=== PATIENT | female | born 1960 | race Caucasian/White ===

== ENCOUNTER → 2016-11-03 | Outpatient (CLI) | payer OTHER ==
--- NOTE | 2016-11-03 17:18 | Diagnostic Imaging Report ---
EXAMINATION: Bilateral digital screening mammogram with CAD. The current study was also evaluated with a Computer Aided Detection (CAD) system. INDICATION: Screening. No current complaints stated on the questionnaire. COMPARISON: 05/16/2006. FINDINGS: The breasts are composed of scattered fibroglandular densities. There is significant decrease in overall breast density when compared to 2006 exam, limiting the value of comparison. There is a focal asymmetry seen in the lateral aspect of the right breast persistent on tomographic evaluation. The left breast demonstrates no definite underlying lesion. IMPRESSION: Focal compression views and ultrasound evaluation for focal asymmetry along the lateral aspect of the right breast is recommended. ACR BI-RADS Category 0: Incomplete. (Needs additional imaging evaluation). Result letter will be mailed to the patient. Note: At least 10% of breast cancer is not imaged by mammography. Dictated by: Dictated on workstation # [id number]
== END ==
LOC: RAD 14:57
PROVIDERS: ATTEND Nurse Practitioner Family
DX: Z12.31 Encounter for screening mammogram for malignant neoplasm of breast (principal); N64.89 Other specified disorders of breast
CPT/HCPCS: 77067

== ENCOUNTER → 2016-12-05 | Outpatient (CLI) | payer OTHER ==
--- NOTE | 2016-12-05 20:24 | Diagnostic Imaging Report ---
Right breast diagnostic mammogram with tomography. COMPARISON: 05/16/2006. INDICATION: Focal asymmetry in the outer aspect of the right breast. The current study was also evaluated with a Computer Aided Detection (CAD) system. FINDINGS: Focal compression views and true lateral projection demonstrate persistent asymmetry with no confirmed underlying mass. IMPRESSION: Persistent indeterminate asymmetry along the outer aspect of right breast. Ultrasound evaluation pending. ACR BI-RADS Category 0: Incomplete. (Needs additional imaging evaluation). Result letter will be mailed to the patient. Note: At least 10% of breast cancer is not imaged by mammography. Dictated by: Dictated on workstation # [id number]
--- NOTE | 2016-12-05 20:32 | Diagnostic Imaging Report ---
EXAMINATION: Right breast ultrasound. INDICATION: Focal asymmetry in the outer aspect of the right breast. FINDINGS: The four quadrants and retroareolar region of the right breast is scanned with no underlying abnormality seen. IMPRESSION: Negative study. Six-month followup mammogram is recommended to ensure stability or resolution of the focal asymmetry, presumably related to summation artifact of parenchyma. ACR BI-RADS Category 3: Probably benign findings. Dictated by: Dictated on workstation # [id number]
== END ==
LOC: RAD 13:59
PROVIDERS: ATTEND Nurse Practitioner Family
DX: N64.89 Other specified disorders of breast (principal)
CPT/HCPCS: 76641

== ENCOUNTER 2018-01-31 14:10 | Emergency (ER) | payer SELFPAY ==
[~2018-01-31] VITALS: Ht 175.3 cm; Wt 84.4 kg
[2018-01-31 14:35] LABS: BASOPHILS % (AUTO) 0 % (0-10); EOSINOPHILS % (AUTO) 0 % (0-10); HEMATOCRIT 42 % (35-52); HEMOGLOBIN 14.8 G/DL (11.5-16.0); LYMPHOCYTES # (AUTO) 1.8 X 10^3 (1.0-4.0); LYMPHOCYTES % (AUTO) 16 % (12-44); MEAN CORPUSCULAR HEMOGLOBIN 33 PG (25-34); MEAN CORPUSCULAR HGB CONC 35 G/DL (32-36); MEAN CORPUSCULAR VOLUME 93 FL (80-99); MEAN PLATELET VOLUME 8.8 FL (7.4-10.4); MONOCYTES # (AUTO) 1.4 X 10^3 (0.0-1.0); MONOCYTES % (AUTO) 12 % (0-12); NEUTROPHILS # (AUTO) 8.1 X 10^3 (1.8-7.8); NEUTROPHILS % (AUTO) 72 % (42-75); PLATELET COUNT 335 10^3/uL (130-400); RED BLOOD COUNT 4.54 10^6/uL (4.35-5.85); RED CELL DISTRIBUTION WIDTH 14.6 % (10.0-14.5); WHITE BLOOD COUNT 11.3 10^3/uL (4.3-11.0)
--- NOTE | 2018-01-31 14:52 | Diagnostic Imaging Report ---
INDICATION: Shortness of breath COMPARISON: None. FINDINGS: Frontal and lateral views the chest demonstrate clear lungs bilaterally. The heart is minimally enlarged. There is no pneumothorax. Osseous structures are normal. IMPRESSION: Minimal cardiac enlargement without pulmonary edema or infiltrate. Dictated by: Dictated on workstation # [id number]
[2018-01-31 14:59] LABS: ALBUMIN 4.4 GM/DL (3.2-4.5); BILIRUBIN,TOTAL 0.8 MG/DL (0.1-1.0); CALCIUM 9.4 MG/DL (8.5-10.1); CREATININE SERUM 1.06 MG/DL (0.60-1.30); POTASSIUM 3.7 MMOL/L (3.6-5.0); TOTAL PROTEIN 7.2 GM/DL (6.4-8.2)
--- OUTSIDE RECORDS SUMMARY | 2018-01-31 15:14 | XMS REPORT ---
Author Author DAISY URIOSTEGUI [facility] Address [address] [place] [address] Care Team Providers Care Computator Name Role Phone DAISY URIOSTEGUI Unavailable PROBLEMS Type Condition ICD9-CM Code SNH81-PM Code Onset Dates Condition Status SNOMED Code Problem Mood disorder F39 Active 27258057 Problem Hypertension, unspecified type I10 Active 60003456 Problem Slow transit constipation K59.01 Active 80054648 Problem Lumbago with sciatica, left side M54.42 Active 071635610 Problem Other chronic pain G89.29 Active 40692523 Problem Abnormal mammogram of right breast R92.8 Active 961744416 Problem Disc degeneration, lumbar M51.36 Active 10692185 ALLERGIES Substance Reaction Event Type Date Status Penicillin V Potassium hives Drug Allergy Dec, Active ENCOUNTERS Encounter Location Date Diagnosis [facility] [address] [address] Dec, Cough R05 ; Viral gastroenteritis A08.4 and Hypertension, unspecified type I10 [facility] [id number] [place] [address] Dec, [facility] [address] [address] Aug, Slow transit constipation K59.01 and Abdominal pain, generalized R10.84 [facility] [address] [address] Nov, Abnormal mammogram of right breast R92.8 [facility] [address] [address] Nov, [facility] [address] [address] Nov, Mood disorder F39 [facility] [address] [address] 12 Oct, 2016 Routine gynecological examination Z01.419 and Breast cancer screening Z12.31 [facility] [address] [address] Sep, Mood disorder F39 ; Disc degeneration, lumbar M51.36 ; Lumbago with sciatica, left side M54.42 ; Other chronic pain G89.29 and Cyst of left breast N60.02 [facility] [id number] [place] [address] Sep, [facility] [id number] [place] [address] June, Hypertension 401.9 ; Sciatic nerve pain 724.3 and Degenerative joint disease 715.90 [facility] [id number] [place] [address] 280[address] May, [facility] [id number] [place] [address]- [address] May, [facility] [id number] [place] [id number]- [address] Apr, [facility] [address] [address] Apr, [facility] [id number] [place] [address]- [address] Apr, [facility] [address] [address] Apr, [facility] [id number] [place] [address]- [address] Jan, [facility] [id number] [address] Jan, [facility] [id number] [place] [address] 20[address] June, [facility] [address] [facility] [id number] [address] June, [facility] [id number] [address] June, [facility] [id number] [address] June, [facility] [address] [address] May, [facility] [id number] [address] May, [facility] [address], [place] [address] Apr, [facility] [address] [address] Mar, [facility] [id number] [address] Mar, IMMUNIZATIONS No Known Immunizations SOCIAL HISTORY Never Assessed REASON FOR VISIT elevated Blood Pressure; chest cold - TONIE Luis PLAN OF CARE Activity Details Follow Up if not improving with PCP or reg follow up Reason: VITAL SIGNS Height 69 in 2017-12-12 Weight 195.8 lbs 2017-12-12 Temperature 97.9 degrees Fahrenheit 2017-12-12 Heart Rate 76 bpm 2017-12-12 Respiratory Rate 18 2017-12-12 BMI 28.91 kg/m2 2017-12-12 Blood pressure systolic 142 mmHg 2017-12-12 Blood pressure diastolic 100 mmHg 2017-12-12 MEDICATIONS Medication Instructions Dosage Frequency Start Date End Date Duration Status Azithromycin 250 MG Orally Once a day 2 tablets on the first day, then 1 tablet daily for 4 days 24h Dec, Dec, 5 day(s) Active Tramadol HCl 50 mg Orally every 6 hrs 1 tablet as needed 6h 24 Sep, 2016 Active Naproxen 500 mg Orally every 12 hrs 1 tablet as needed 12h June, Active Lisinopril-Hydrochlorothiazide 20-25 MG Orally Once a day 1 tablet 24h June, 30 day(s) Active Zofran ODT 4 MG Orally every 4 hrs 1 tablet on the tongue and allow to dissolve as needed 4h Dec, 5 days Active Symbicort 80-4.5 MCG/ACT Inhalation Twice a day 2 puffs 12h 12 Apr, 2014 Active RESULTS Name Result Date Reference Range Xray : Chest 2 View (IN HOUSE) 2017-12-12 PROCEDURES Procedure Date Ordered Result Body Site X-RAY EXAM CHEST 2 VIEWS Dec 12, 2017 INSTRUCTIONS MEDICATIONS ADMINISTERED No Known Medications MEDICAL (GENERAL) HISTORY Type Description Date Medical History hypertension Medical History anxiety Medical History depression Surgical History tubal ligation Surgical History cyst removed left breast Hospitalization History Surgery(s)/Childbirth(s) only
--- OUTSIDE RECORDS SUMMARY | 2018-01-31 15:14 | XMS REPORT ---
Author Author JALIL TINEO Organization [facility] Address [address] [place] [address] Care Team Providers Care Presser And Blocker Knitted Goods Name Role Phone JALIL TINEO Unavailable PROBLEMS Type Condition ICD9-CM Code GCS02-IV Code Onset Dates Condition Status SNOMED Code Problem Slow transit constipation K59.01 Active 17146387 Problem Abnormal mammogram of right breast R92.8 Active 816434589 Problem Other chronic pain G89.29 Active 60471653 Problem Mood disorder F39 Active 42415651 Problem Disc degeneration, lumbar M51.36 Active 07626842 Problem Lumbago with sciatica, left side M54.42 Active 761905153 ALLERGIES Substance Reaction Event Type Date Status Penicillin V Potassium hives Drug Allergy Aug, Active ENCOUNTERS Encounter Location Date Diagnosis [place] [address] [address] Aug, Slow transit constipation K59.01 and Abdominal pain, generalized R10.84 [place] [id number] [place] [address] Nov, Abnormal mammogram of right breast R92.8 [place] [id number] [place] [address] Nov, [place] [id number] [place] [address] Nov, Mood disorder F39 [place] [address] [address] Oct, Routine gynecological examination Z01.419 and Breast cancer screening Z12.31 [place] [id number] [place] [address] Sep, Mood disorder F39 ; Disc degeneration, lumbar M51.36 ; Lumbago with sciatica, left side M54.42 ; Other chronic pain G89.29 and Cyst of left breast N60.02 [facility] [id number] [address] Sep, [facility] [id number] [place] [address] June, Hypertension 401.9 ; Sciatic nerve pain 724.3 and Degenerative joint disease 715.90 [facility] [id number] [place] [address] May, [facility] [id number] [place] [address]- [address] May, [facility] [id number] [place] [address]- [address] Apr, [facility] [id number] [place] [address]- [address] Apr, [facility] [id number] [place] [address]- [address] Apr, [facility] [id number] [place] [address]- 3293 Apr, [facility] [id number] [address]- [address] Jan, [facility] [address], [place] [address] Jan, [facility] [address], [place] [address] June, [facility] [id number] [place] [address]28233- 45[address] June, [facility] [id number] June, [facility] [address] June, [facility] [address] [facility] [id number] [address] May, [facility] [address] [facility] [id number], [place] [address]- [address] May, [facility] [address] [facility] [id number] [address] Apr, [facility] [address] [facility] [id number] [address] Mar, [facility] [address] [facility] [id number], [place] [address] Mar, IMMUNIZATIONS No Known Immunizations SOCIAL HISTORY Never Assessed REASON FOR VISIT Pain (acute)(stomach) -[place] PLAN OF CARE VITAL SIGNS Height 69 in 2017-08-07 Weight 193 lbs 2017-08-07 Temperature 98 degrees Fahrenheit 2017-08-07 Heart Rate 82 bpm 2017-08-07 Respiratory Rate 20 2017-08-07 Oximetry on room air:98 % 2017-08-07 BMI 28.50 kg/m2 2017-08-07 Blood pressure systolic 142 mmHg 2017-08-07 Blood pressure diastolic 88 mmHg 2017-08-07 MEDICATIONS Medication Instructions Dosage Frequency Start Date End Date Duration Status Naproxen 500 mg Orally every 12 hrs 1 tablet as needed 12h June, Active Symbicort 80-4.5 MCG/ACT Inhalation Twice a day 2 puffs 12h 12 Apr, 2014 Active Fleet Enema 7-19 GM/118ML Rectal Once a day as directed 24h Aug, Aug, 2 days Active Lisinopril-Hydrochlorothiazide 20-25 MG Orally Once a day 1 tablet 24h June, 30 day(s) Active Cyclobenzaprine HCl 10 mg Orally 2 times a day 1 tablet as needed 12h Sep, Active Celexa 20 mg Orally Once a day 1 tablet 24h June, 30 day(s) Active Tramadol HCl 50 mg Orally every 6 hrs 1 tablet as needed 6h Sep, Active RESULTS Name Result Date Reference Range Xray : Abdomen 2v (Upright and KUB) - IN HOUSE 2017-08-07 PROCEDURES Procedure Date Ordered Result Body Site X-RAY EXAM ABDOMEN 2 VIEWS August 07, 2017 INSTRUCTIONS MEDICATIONS ADMINISTERED No Known Medications MEDICAL (GENERAL) HISTORY Type Description Date Medical History hypertension Medical History anxiety Medical History depression Surgical History tubal ligation Surgical History cyst removed left breast Hospitalization History Surgery(s)/Childbirth(s) only
--- OUTSIDE RECORDS SUMMARY | 2018-01-31 15:14 | XMS REPORT ---
Author Author JALIL TINEO Organization [facility] Address [address] [place] [address] Care Team Providers Care Hand Spray Operator Name Role Phone JALIL TINEO Unavailable PROBLEMS Type Condition ICD9-CM Code QHW22-QD Code Onset Dates Condition Status SNOMED Code Problem Mood disorder F39 Active 54745908 Problem Hypertension, unspecified type I10 Active 33549051 Problem Slow transit constipation K59.01 Active 76754368 Problem Lumbago with sciatica, left side M54.42 Active 073222134 Problem Other chronic pain G89.29 Active 81651381 Problem Abnormal mammogram of right breast R92.8 Active 051443242 Problem Disc degeneration, lumbar M51.36 Active 92919806 ALLERGIES No Information ENCOUNTERS Encounter Location Date Diagnosis [facility] [address] [address] Dec, [facility] [address] [address] Dec, Cough R05 ; Viral gastroenteritis A08.4 and Hypertension, unspecified type I10 [facility] [address] [address] Dec, [facility] [address] [address] Aug, Slow transit constipation K59.01 and Abdominal pain, generalized R10.84 [facility] [address] [address] Nov, Abnormal mammogram of right breast R92.8 [facility] [address] [address] Nov, [facility] [address] [address] Nov, Mood disorder F39 [facility] [address] [place] [address] 12 Oct, 2016 Routine gynecological examination Z01.419 and Breast cancer screening Z12.31 [facility] [id number] [place] [address]- [address] 24 Sep, 2016 Mood disorder F39 ; Disc degeneration, lumbar M51.36 ; Lumbago with sciatica, left side M54.42 ; Other chronic pain G89.29 and Cyst of left breast N60.02 [facility] [id number] [place] [address] Sep, [facility] [id number] [place] [address]- [address] June, Hypertension 401.9 ; Sciatic nerve pain 724.3 and Degenerative joint disease 715.90 [facility] [id number] [place] [address] May, [facility] [id number] [place] [address]- 5278 May, [facility] [id number] [place] [address]- 0466 Apr, [facility] [id number] [place] [address] 85[address]- 6491 Apr, [facility] [id number] [place] [address] 58671- 6741 Apr, [facility] [id number] [place] [address] 09649- 2313 Apr, [facility] [id number] [place] [address] 018292- 3492 Jan, [facility] [id number] [place] [address] 818684- 4654 Jan, [facility] [id number] [place] [address] 16752- 4549 June, [facility] [id number], [place] [address]- [address] June, [facility] [address], [place] [address]- 25[address] June, [facility] [address], [place] [address]- 25[address] June, [facility] [address], [place] [address]- 25[address] May, [facility] [address], [place] [address] 2546 May, [facility] [address], [place] [address]- [address] Apr, [facility] [address], [place] [address]- 7[address] Mar, [facility] [address], [place] [address] 2546 Mar, IMMUNIZATIONS No Known Immunizations SOCIAL HISTORY Never Assessed REASON FOR VISIT triage PLAN OF CARE VITAL SIGNS MEDICATIONS Unknown Medications RESULTS No Results PROCEDURES No Known procedures INSTRUCTIONS MEDICATIONS ADMINISTERED No Known Medications MEDICAL (GENERAL) HISTORY Type Description Date Medical History hypertension Medical History anxiety Medical History depression Surgical History tubal ligation Surgical History cyst removed left breast Hospitalization History Surgery(s)/Childbirth(s) only
--- OUTSIDE RECORDS SUMMARY | 2018-01-31 15:15 | XMS REPORT ---
Author Author JALIL TINEO Organization [facility] Address [address] [place] [address] Care Team Providers Care Tile Shader Name Role Phone JALIL TINEO Unavailable PROBLEMS Type Condition ICD9-CM Code ZZJ27-VU Code Onset Dates Condition Status SNOMED Code Problem Essential hypertension, benign 401.1 Active 0699803 Problem Other and unspecified hyperlipidemia 272.4 Active 94446626 Problem Unspecified episodic mood disorder 296.90 Active 462234663 Problem Abnormal mammogram of right breast R92.8 Active 147258218 Problem Disc degeneration, lumbar M51.36 Active 02352136 Problem Mood disorder F39 Active 52212451 Problem Hypertension 401.9 Active 80511562 Problem Lumbago with sciatica, left side M54.42 Active 835993326 Problem Other chronic pain G89.29 Active 05095802 Problem Unspecified breast screening V76.10 Active 638287885 Problem Other specified counseling V65.49 Active 323768618 Problem Special screening examination, human papillomavirus [HPV] V73.81 Active 560343644 Problem Screening for malignant neoplasm of the cervix V76.2 Active 757580129 Problem Other abnormal glucose 790.29 Active 878831170 ALLERGIES Substance Reaction Event Type Date Status Penicillin V Potassium hives Drug Allergy Sep, Active ENCOUNTERS Encounter Location Date Diagnosis [place] [address] [place] [id number] [place] [address] Nov, Abnormal mammogram of right breast R92.8 [facility] [id number] [place] [address]226- 8778 Nov, [place] [address] [place] [address]- 12[address] Nov, Mood disorder F39 [place] [address] [place] [id number], [place] [address] 12 Sep, 2017 Routine gynecological examination Z01.419 and Breast cancer screening Z12.31 [facility] [address], [place] [address]- [address] Sep, Mood disorder F39 ; Disc degeneration, lumbar M51.36 ; Lumbago with sciatica, left side M54.42 ; Other chronic pain G89.29 and Cyst of left breast N60.02 [facility] [id number] [place] [address]- [address] Sep, [facility] [id number] [place] [address] 36[address]- 39[address] June, Hypertension 401.9 ; Sciatic nerve pain 724.3 and Degenerative joint disease 715.90 [facility] [id number] [place] [address]- [address] May, [facility] [id number] [place] [address] 48779- 9668 May, [facility] [id number] [place] [address] 13132- 3810 Apr, [facility] [id number] [place] [address] 40483- 9476 Apr, [facility] [id number] [address]- 3[address] Apr, [facility] [address], [place] [address]- 76[address] Apr, [facility] [id number] [address]- 9[address] Jan, [facility] [id number] Jan, [facility] [id number]- [address] June, [facility] [id number] [address] June, [facility] [address] [place] [id number] [address]- 0636 June, [facility] [id number], [place] [address]- 46[address] June, [facility] [address] [address]- [address] May, [facility] [address], [place] [address]- 67[address] May, [facility] [address], [place] [address]- 8164 Apr, [facility] [address] [address] Mar, [facility] [address], [place] [address]- 3[address] Mar, IMMUNIZATIONS No Known Immunizations SOCIAL HISTORY Never Assessed REASON FOR VISIT Establish Care, last week had a heart rate of 198, having panic attacks, and anxiety, wants thyroid checkes as she says her throat swells like a goiter., Bone degeneration- and siatic pain, Arthritis, HTN PLAN OF CARE Activity Details Follow Up 4 Weeks Reason:mood disorder VITAL SIGNS Height 69 in 2016-09-29 Weight 194.5 lbs 2016-09-29 Temperature 98.0 degrees Fahrenheit 2016-09-29 Heart Rate 84 bpm 2016-09-29 Respiratory Rate 18 2016-09-29 BMI 28.72 kg/m2 2016-09-29 Blood pressure systolic 145 mmHg 2016-09-29 Blood pressure diastolic 86 mmHg 2016-09-29 MEDICATIONS Medication Instructions Dosage Frequency Start Date End Date Duration Status Symbicort 80-4.5 MCG/ACT Inhalation Twice a day 2 puffs 12h 12 Apr, 2014 Active Cyclobenzaprine HCl 10 mg Orally 2 times a day 1 tablet as needed 12h Sep, Active Naproxen 500 mg Orally every 12 hrs 1 tablet as needed 12h June, Active Celexa 20 mg Orally Once a day 1 tablet 24h June, 30 day(s) Active Tramadol HCl 50 mg Orally every 6 hrs 1 tablet as needed 6h Sep, Active Lisinopril-Hydrochlorothiazide 20-25 MG Orally Once a day 1 tablet 24h June, 30 day(s) Active RESULTS No Results PROCEDURES No Known procedures INSTRUCTIONS MEDICATIONS ADMINISTERED No Known Medications MEDICAL (GENERAL) HISTORY Type Description Date Medical History hypertension Medical History anxiety Medical History depression Surgical History tubal ligation Surgical History cyst removed left breast Hospitalization History Surgery(s)/Childbirth(s) only
--- OUTSIDE RECORDS SUMMARY | 2018-01-31 15:15 | XMS REPORT ---
Author Author DRU HOBBS [facility] Address [address] [place] [address] Care Team Providers Care Poultry Dressing Worker Name Role Phone DRU HOBBS Unavailable PROBLEMS Type Condition ICD9-CM Code YHQ11-OS Code Onset Dates Condition Status SNOMED Code Problem Essential hypertension, benign 401.1 Active 7971313 Problem Other and unspecified hyperlipidemia 272.4 Active 11744827 Problem Unspecified episodic mood disorder 296.90 Active 914952026 Problem Abnormal mammogram of right breast R92.8 Active 955720803 Problem Disc degeneration, lumbar M51.36 Active 99701101 Problem Mood disorder F39 Active 56587885 Problem Hypertension 401.9 Active 01815239 Problem Lumbago with sciatica, left side M54.42 Active 360836240 Problem Other chronic pain G89.29 Active 67349860 Problem Unspecified breast screening V76.10 Active 694955117 Problem Other specified counseling V65.49 Active 523156785 Problem Special screening examination, human papillomavirus [HPV] V73.81 Active 414504811 Problem Screening for malignant neoplasm of the cervix V76.2 Active 567395537 Problem Other abnormal glucose 790.29 Active 976929152 ALLERGIES No Information ENCOUNTERS Encounter Location Date Diagnosis [place] [id number] [place] [address]- [address] Nov, Abnormal mammogram of right breast R92.8 [place] [address], [place] [address] Nov, [place] [address] [place] [id number] [place] [address] 21259- 0334 Nov, Mood disorder F39 [place] [address] [place] [address] 07164- 2330 12 Oct, 2016 Routine gynecological examination Z01.419 and Breast cancer screening Z12.31 [facility] [address], [place] [address] Sep, Mood disorder F39 ; Disc degeneration, lumbar M51.36 ; Lumbago with sciatica, left side M54.42 ; Other chronic pain G89.29 and Cyst of left breast N60.02 [facility] [id number], [place] [address] Sep, [facility] [address] [id number] [place] [address] 92216- 2322 June, Hypertension 401.9 ; Sciatic nerve pain 724.3 and Degenerative joint disease 715.90 [facility] [address] [place] [id number] [place] [address] 12353- 9334 May, [facility] [address] [id number] [place] [address] 76188- 2610 May, [facility] [id number] [place] [address] 56423- 0955 Apr, [facility] [address] [place] [id number] [place] [address] 10080- 0505 Apr, [facility] [address] [id number] [place] [address] 54367- 4261 Apr, [facility] [address], [place] [address] Apr, [facility] [id number] [address] Jan, [facility] [address] [address] [address] Jan, [facility] [id number] June, [facility] [address] [address] June, [facility] [address] [place] [id number] [place] [address] 44071- 2546 June, [facility] [address] [facility] [id number] [address] June, [facility] [address] [place] [id number] [address] 99[address] May, [facility] [id number], [place] [address] 9[address] May, [facility] [id number], [place] [address] Apr, [facility] [id number] [address] Mar, [facility] [id number], [place] [address] Mar, IMMUNIZATIONS No Known Immunizations SOCIAL HISTORY Never Assessed REASON FOR VISIT Order from Results PLAN OF CARE VITAL SIGNS MEDICATIONS Unknown Medications RESULTS Name Result Date Reference Range Mammogram Dx, Right 2016-12-05 PROCEDURES No Known procedures INSTRUCTIONS MEDICATIONS ADMINISTERED No Known Medications MEDICAL (GENERAL) HISTORY Type Description Date Medical History hypertension Medical History anxiety Medical History depression Surgical History tubal ligation Surgical History cyst removed left breast Hospitalization History Surgery(s)/Childbirth(s) only
--- OUTSIDE RECORDS SUMMARY | 2018-01-31 15:15 | XMS REPORT ---
Author Author JALIL TINEO Organization 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 Name Role Phone JALIL TINEO Unavailable PROBLEMS Type Condition ICD9-CM Code AWT77-QI Code Onset Dates Condition Status SNOMED Code Problem Essential hypertension, benign 401.1 Active 3849324 Problem Other and unspecified hyperlipidemia 272.4 Active 95803197 Problem Unspecified episodic mood disorder 296.90 Active 452128183 Problem Abnormal mammogram of right breast R92.8 Active 582995297 Problem Disc degeneration, lumbar M51.36 Active 99177887 Problem Mood disorder F39 Active 50012912 Problem Hypertension 401.9 Active 55507578 Problem Lumbago with sciatica, left side M54.42 Active 299990233 Problem Other chronic pain G89.29 Active 99321846 Problem Unspecified breast screening V76.10 Active 844813121 Problem Other specified counseling V65.49 Active 274138271 Problem Special screening examination, human papillomavirus [HPV] V73.81 Active 049709619 Problem Screening for malignant neoplasm of the cervix V76.2 Active 961265764 Problem Other abnormal glucose 790.29 Active 810271910 ALLERGIES Substance Reaction Event Type Date Status Penicillin V Potassium hives Drug Allergy Nov, Active ENCOUNTERS Encounter Location Date Diagnosis [place] [address] [place] [id number] [place] [address]61- 2742 Nov, Abnormal mammogram of right breast R92.8 [facility] [id number] [place] [address]855- 6446 Nov, [facility] [address] [place] [address] 60908- 0945 Nov, Mood disorder F39 [facility] [address] [place] [id number] [address] 12 Sep, 2017 Routine gynecological examination Z01.419 and Breast cancer screening Z12.31 [facility] [address] [address] Sep, Mood disorder F39 ; Disc degeneration, lumbar M51.36 ; Lumbago with sciatica, left side M54.42 ; Other chronic pain G89.29 and Cyst of left breast N60.02 [facility] [id number] [place] [address] 12583- 8845 Sep, [facility] [id number] [place] [address] 83970- 6655 June, Hypertension 401.9 ; Sciatic nerve pain 724.3 and Degenerative joint disease 715.90 [facility] [id number] [place] [address] 59694- 2003 May, [facility] [id number] [place] [address] 22381- 0859 May, [facility] [id number] [place] [address] 19777- 5023 Apr, [facility] [id number] [place] [address] 35579- 0972 Apr, [facility] [id number] [address]908 Apr, [facility] [address] [address] 2931 Apr, [facility] [id number] [address] 2387 Jan, [facility] [id number] Jan, [facility] [id number] June, [facility] [id number] [address]66 June, [facility] [address] [id number] [address] June, [facility] [id number] [address] 3080 June, [facility] [address] [address] 5797 May, [facility] [address] [address] 5808 May, [facility] [address] [address] 3578 Apr, [facility] [address] [address]70 Mar, [facility] [address] [address]- 8849 Mar, IMMUNIZATIONS No Known Immunizations SOCIAL HISTORY Never Assessed REASON FOR VISIT mood disorderf/u--Chavez Salgado MA PLAN OF CARE VITAL SIGNS Height 69 in 2016-11-10 Weight 192.7 lbs 2016-11-10 Temperature 98.4 degrees Fahrenheit 2016-11-10 Heart Rate 86 bpm 2016-11-10 Respiratory Rate 20 2016-11-10 BMI 28.45 kg/m2 2016-11-10 Blood pressure systolic 148 mmHg 2016-11-10 Blood pressure diastolic 92 mmHg 2016-11-10 MEDICATIONS Medication Instructions Dosage Frequency Start Date End Date Duration Status Symbicort 80-4.5 MCG/ACT Inhalation Twice a day 2 puffs 12h 12 Apr, 2014 Active Tramadol HCl 50 mg Orally every 6 hrs 1 tablet as needed 6h Sep, Active Celexa 20 mg Orally Once a day 1 tablet 24h June, 30 day(s) Active Naproxen 500 mg Orally every 12 hrs 1 tablet as needed 12h June, Active Cyclobenzaprine HCl 10 mg Orally 2 times a day 1 tablet as needed 12h Sep, Active Lisinopril-Hydrochlorothiazide 20-25 MG Orally Once [...]
--- OUTSIDE RECORDS SUMMARY | 2018-01-31 15:15 | XMS REPORT ---
Author Author DRU HOBBS [facility] Address [address] [place] [address] Care Team Providers Care Tan Room Supervisor Name Role Phone DRU HOBBS Unavailable PROBLEMS Type Condition ICD9-CM Code LQI59-CI Code Onset Dates Condition Status SNOMED Code Problem Essential hypertension, benign 401.1 Active 0380296 Problem Other and unspecified hyperlipidemia 272.4 Active 73634791 Problem Unspecified episodic mood disorder 296.90 Active 924439898 Problem Abnormal mammogram of right breast R92.8 Active 814796435 Problem Disc degeneration, lumbar M51.36 Active 15012384 Problem Mood disorder F39 Active 03611622 Problem Hypertension 401.9 Active 82474705 Problem Lumbago with sciatica, left side M54.42 Active 267993463 Problem Other chronic pain G89.29 Active 15589445 Problem Unspecified breast screening V76.10 Active 788538675 Problem Other specified counseling V65.49 Active 936066867 Problem Special screening examination, human papillomavirus [HPV] V73.81 Active 550840086 Problem Screening for malignant neoplasm of the cervix V76.2 Active 922285532 Problem Other abnormal glucose 790.29 Active 528433493 ALLERGIES Substance Reaction Event Type Date Status Penicillin V Potassium hives Drug Allergy Oct, Active ENCOUNTERS Encounter Location Date Diagnosis [place] [address] [place] [id number] [address] Nov, Abnormal mammogram of right breast R92.8 [facility] [id number] [address]- 77[address] Nov, [facility] [address] [address]- 4[address] Nov, Mood disorder F39 [place] [address] [place] [id number] [address]- [address] Oct, Routine gynecological examination Z01.419 and Breast cancer screening Z12.31 [facility] [address], [place] [address]- [address] Sep, Mood disorder F39 ; Disc degeneration, lumbar M51.36 ; Lumbago with sciatica, left side M54.42 ; Other chronic pain G89.29 and Cyst of left breast N60.02 [facility] [id number] [place] [address] 40374- 8880 Sep, [facility] [id number] [place] [address] 92979- 5492 June, Hypertension 401.9 ; Sciatic nerve pain 724.3 and Degenerative joint disease 715.90 [facility] [address] [id number] [place] [address] 49906- 6300 May, [facility] [address] [id number] [place] [address] 09286- 3079 May, [facility] [address] [id number] [place] [address] 11313- 8921 Apr, [facility] [id number] [place] [address] 88710- 0169 Apr, [facility] [id number] [address]- 7068 Apr, [facility] [id number] [place] [address] 68959- 8578 Apr, [facility] [id number] [address] 0687 Jan, [facility] [id number] [place] [address] 23451- 7969 Jan, [facility] [id number], [place] [address]- 8896 June, [facility] [address] [id number] [place] [address] 132196- 1096 June, [facility] [address] [facility] [id number] [address]- 6746 June, [facility] [address], [place] [address]- 0481 June, [facility] [address], [place] [address]- 1560 May, [facility] [address], [place] [address]- 5447 May, [facility] [address] [facility] [id number] [address]- 6300 Apr, [facility] [address] Mar, [facility] [address] [place] [id number], [place] [address]- 3927 Mar, IMMUNIZATIONS No Known Immunizations SOCIAL HISTORY Never Assessed REASON FOR VISIT Annual physical (female)--Filiberto PLAN OF CARE Activity Details Follow Up 1 Year, sooner prn Reason: VITAL SIGNS Height 69 in 2016-10-18 Weight 192.2 lbs 2016-10-18 Temperature 98.3 degrees Fahrenheit 2016-10-18 Heart Rate 88 bpm 2016-10-18 Respiratory Rate 20 2016-10-18 BMI 28.38 kg/m2 2016-10-18 Blood pressure systolic 156 mmHg 2016-10-18 Blood pressure diastolic 94 mmHg 2016-10-18 MEDICATIONS Medication Instructions Dosage Frequency Start Date End Date Duration Status Lisinopril-Hydrochlorothiazide 20-25 MG Orally Once a day [...] Inhalation Twice a day 2 puffs 12h Apr, Active Tramadol HCl 50 mg Orally every 6 hrs 1 tablet as needed 6h Sep, Active RESULTS Name Result Date Reference Range TRICHOMONAS (IN HOUSE) 2016-10-18 TRICHOMONAS Control + Lot # [id number] Exp date 11/2017 BACTERIAL VAGINOSIS (IN HOUSE) 2016-10-18 RESULTS negative Control + Lot # [id number] Exp date 07/2017 CULTURE, GENITAL 2016-10-18 Genital Culture, Routine Final report Result 1 GC/CHLAM PROBE (STATE) 2016-10-18 CHLAMYDIA GC PDF Report 2016-10-18 PDF Report1 LCLS PAP TEST W/ HPV REGARDLESS 2016-10-18 DIAGNOSIS: Specimen adequacy: Clinician provided ICD10: Performed by: Electronically signed by: . . Note: HPV, high-risk Negative Negative Mammogram, Bilateral Screening 2016-11-03 PROCEDURES Procedure Date Ordered Result Body Site SPECIMEN HANDLING Oct 18, 2016 No Charge Oct 18, 2016 Bacterial Vaginosis In House Oct 18, 2016 TRICHOMONAS ASSAY W/OPTIC Oct 18, 2016 CULTURE, BACTERIA, OTHER Oct 18, 2016 INSTRUCTIONS MEDICATIONS ADMINISTERED No Known Medications MEDICAL (GENERAL) HISTORY Type Description Date Medical History hypertension Medical History anxiety Medical History depression Surgical History tubal ligation Surgical History cyst removed left breast Hospitalization History Surgery(s)/Childbirth(s) only
--- OUTSIDE RECORDS SUMMARY | 2018-01-31 15:15 | XMS REPORT | Continuity of Care Document ---
Author Author [facility] Address Unknown Phone Unavailable Allergies Active Description Code Type Severity Reaction Onset Reported/Identified Relationship to Patient Clinical Status Yes Penicillins Drug Allergy 03/16/2010 Yes Penicillins Drug Allergy N/A N/A 03/16/2010 Medications There is no data. Problems Date Dx Coded Attending Type Code Diagnosis Diagnosed By 03/16/2010 465.9 UPPER RESPIRATORY INFECTION 03/16/2010 708.0 ALLERGIC URTICARIA 03/16/2010 786.2 COUGH 03/16/2010 465.9 UPPER RESPIRATORY INFECTION 03/16/2010 708.0 ALLERGIC URTICARIA 03/16/2010 786.2 COUGH 03/16/2010 465.9 UPPER RESPIRATORY INFECTION 03/16/2010 708.0 ALLERGIC URTICARIA 03/16/2010 786.2 COUGH 03/16/2010 YEISON ZAMBRANO APRN 465.9 UPPER RESPIRATORY INFECTION 03/16/2010 YEISON ZAMBRANO APRN 708.0 ALLERGIC URTICARIA 03/16/2010 YEISON ZAMBRANO APRN 786.2 COUGH 03/16/2010 KORIN BARTON MD 465.9 UPPER RESPIRATORY INFECTION 03/16/2010 KORIN BARTON MD 708.0 ALLERGIC URTICARIA 03/16/2010 KORIN BARTON MD 786.2 COUGH 03/28/2012 296.90 MOOD DISORDER 03/28/2012 401.1 HYPERTENSION, BENIGN ESSENTIAL 03/28/2012 296.90 MOOD DISORDER 03/28/2012 401.1 HYPERTENSION, BENIGN ESSENTIAL 03/28/2012 296.90 MOOD DISORDER 03/28/2012 401.1 HYPERTENSION, BENIGN ESSENTIAL 03/28/2012 YEISON ZAMBRANO APRN 296.90 MOOD DISORDER 03/28/2012 YEISON ZAMBRANO APRN 401.1 HYPERTENSION, BENIGN ESSENTIAL 03/28/2012 KORIN BARTON MD 296.90 MOOD DISORDER 03/28/2012 KORIN BARTON MD 401.1 HYPERTENSION, BENIGN ESSENTIAL 04/25/2012 272.4 HYPERLIPIDEMIA 04/25/2012 790.29 HYPERGLYCEMIA 04/25/2012 YEISON ZAMBRANO APRN 272.4 HYPERLIPIDEMIA 04/25/2012 YEISON ZAMBRANO APRN 790.29 HYPERGLYCEMIA 04/25/2012 KORIN BARTON MD 272.4 HYPERLIPIDEMIA 04/25/2012 KORIN BARTON MD 790.29 HYPERGLYCEMIA 05/30/2012 YEISON ZAMBRANO APRN V65.49 OTHER SPECIFIED COUNSELING 05/30/2012 YEISON ZAMBRANO APRN V73.81 HPV SCREENING 05/30/2012 YEISON ZAMBRANO APRN V76.10 BREAST CANCER SCREENING 05/30/2012 YEISON ZAMBRANO APRN V76.2 CERVICAL CANCER SCREENING (PAP SMEAR) 05/30/2012 KORIN BARTON MD V65.49 OTHER SPECIFIED COUNSELING 05/30/2012 KORIN BARTON MD V73.81 HPV SCREENING 05/30/2012 KORIN BARTON MD V76.10 BREAST CANCER SCREENING 05/30/2012 KORIN BARTON MD V76.2 CERVICAL CANCER SCREENING (PAP SMEAR) Procedures Code Description [place] [address] ROUTINE VENIPUNCTURE 04/02/2012 55695 CBC 04/02/2012 63521 CMP 04/02/2012 74711 LIPID PANEL 04/02/2012 [id number] GFR CALC (RESULT ONLY) 04/02/2012 48494 TSH 04/02/2012 35181 A1C (IN-HOUSE) 04/25/2012 77774 HEMOCCULT 05/30/2012 09376 MAMMOGRAM, SCREENING 05/31/2012 45591 PAP SMEAR 05/31/2012 Q0091 PAP SMEAR OBTAIN SMEAR 05/31/2012 Results Test Result Range Pap Lb, HPV-hr - 10/18/16 15:37 HPV, high-risk Negative Negative DIAGNOSIS: Comment Specimen adequacy: Comment Clinician provided ICD10: Comment Performed by: Comment Electronically signed by: Comment . . Note: Comment Genital Culture, Routine - 10/18/16 15:37 Genital Culture, Routine Note CULTURE, GENITAL - 10/18/16 15:37 Genital Culture, Routine Final report NRG Result 1 NRG PAP TEST W/ HPV REGARDLESS - 10/18/16 15:37 DIAGNOSIS: NRG Specimen adequacy: NRG Clinician provided ICD10: NRG Performed by: NRG . . NRG Note: NRG HPV, high-risk Negative Negative Electronically signed by: NRG Encounters ACCT No. Visit Date/Time Discharge Status Pt. Type Provider Facility Loc./Unit Complaint [id number] 05/01/2014 15:15:00 05/01/2014 23:59:59 CLS Outpatient KORIN BARTON MD [id number] 05/30/2012 13:24:00 05/30/2012 23:59:59 CLS Outpatient YEISON ZAMBRANO APRN [id number] 04/25/2012 15:09:00 04/25/2012 23:59:59 CLS Outpatient [id number] 04/02/2012 07:47:00 04/02/2012 23:59:59 CLS Outpatient [id number] 03/28/2012 15:02:00 03/28/2012 23:59:59 CLS Outpatient [id number] 10/21/2016 14:08:00 Document Registration [id number] 10/21/2016 12:08:00 Document Registration [id number] 01/24/2018 11:40:00 01/24/2018 23:59:59 CLS Outpatient JALIL TINEO [facility]N [facility] [id number] 10/18/2016 15:00:00 Document Registration [id number] 12/05/2016 13:59:00 12/05/2016 23:59:59 CLS Outpatient DRU HOBBS [facility] RAD ABNORMAL MAMMO OF RIGHT BREAST [id number] 11/03/2016 14:57:00 11/03/2016 23:59:59 CLS Outpatient DRU HOBBS [facility] RAD Z12.31
--- OUTSIDE RECORDS SUMMARY | 2018-01-31 15:15 | XMS REPORT ---
Author Author JALIL TINEO Organization [facility] Address [address] [place] [address] Care Team Providers Care Supervisor Paper Products Name Role Phone JALIL TINEO Unavailable PROBLEMS Type Condition ICD9-CM Code EYK96-PT Code Onset Dates Condition Status SNOMED Code Problem Essential hypertension, benign 401.1 Active 8674744 Problem Other and unspecified hyperlipidemia 272.4 Active 88803354 Problem Unspecified episodic mood disorder 296.90 Active 956006759 Problem Abnormal mammogram of right breast R92.8 Active 893866314 Problem Disc degeneration, lumbar M51.36 Active 06831700 Problem Mood disorder F39 Active 80729354 Problem Hypertension 401.9 Active 97481699 Problem Lumbago with sciatica, left side M54.42 Active 755511452 Problem Other chronic pain G89.29 Active 86881945 Problem Unspecified breast screening V76.10 Active 677131995 Problem Other specified counseling V65.49 Active 154923230 Problem Special screening examination, human papillomavirus [HPV] V73.81 Active 332311183 Problem Screening for malignant neoplasm of the cervix V76.2 Active 853698655 Problem Other abnormal glucose 790.29 Active 679850396 ALLERGIES No Information ENCOUNTERS Encounter Location Date Diagnosis [place] [id number] [place] [address] Nov, Abnormal mammogram of right breast R92.8 [facility] [id number] [place] [address] Nov, [place] [id number] [place] [address] 68[address] Nov, Mood disorder F39 [place] [id number] [place] [address]86- [address] 12 Oct, 2016 Routine gynecological examination Z01.419 and Breast cancer screening Z12.31 [place] [address], [place] [address] Sep, Mood disorder F39 ; Disc degeneration, lumbar M51.36 ; Lumbago with sciatica, left side M54.42 ; Other chronic pain G89.29 and Cyst of left breast N60.02 [facility] [address] [place] [id number] [place] [address] 21664[address] Sep, [facility] [address] [place] [id number] [place] [address]16- [address] June, Hypertension 401.9 ; Sciatic nerve pain 724.3 and Degenerative joint disease 715.90 [facility] [address] [place] [id number] [place] [address] 12533- [address] May, [facility] [address] [place] [id number] [place] [address] 60597- 5485 May, [facility] [address] [place] [address] [id number] [place] [address] 74[address]- 26[address] Apr, [facility] [address] [place] [address] [id number] [place] [address] 34256- 9979 Apr, [facility] [address] [place] [id number] [place] [address] 86024- 7007 Apr, [facility] [address] [address] Apr, [facility] [address] [address] Jan, [facility] [address] [address] Jan, [facility] [address] [place] [address] [id number] [place] [address] 9[address]32- 89[address] June, [facility] [address] [address] June, [facility] [address] [place] [id number] [place] [address] 34854- 8164 June, [facility] [address] [facility] [id number] [address] June, [facility] [address] [place] [address] May, [facility] [address] [place] [id number] [address] May, [facility] [address] [place] [address] Apr, [facility] [address] [place] [id number] [address] Mar, [facility] [address] [address] Mar, IMMUNIZATIONS No Known Immunizations SOCIAL HISTORY Never Assessed REASON FOR VISIT requesting imaging PLAN OF CARE VITAL SIGNS MEDICATIONS Unknown Medications RESULTS No Results PROCEDURES No Known procedures INSTRUCTIONS MEDICATIONS ADMINISTERED No Known Medications MEDICAL (GENERAL) HISTORY Type Description Date Medical History hypertension Medical History anxiety Medical History depression Surgical History tubal ligation Surgical History cyst removed left breast Hospitalization History Surgery(s)/Childbirth(s) only
[2018-01-31] MEDS ORDERED: ONDANSETRON 4 MG/2 ML (SDV) Z0FRAN IVP ONE (15:30)
[2018-01-31] MEDS ORDERED: NS IV 1000 ML 1,000 ML IV SCH (15:30)
--- NOTE | 2018-01-31 16:15 | ED General ---
General Chief Complaint: General Problems/Pain Stated Complaint: SOB Nursing Triage Note: TO ED PER W/C ACOMPIED BY FEMALE WHO REPORTS THAT PATIENT HAS BEEN SICK FOR 2 MONTHS WITH COUGH AND CONGESTION HAS BEEN SEEN BY [facility]. FRIEND REPORTS THAT SHE FELT LIKE SHE WAS GOING TO PASS OUT. AND COULD NOT GET HER BREATH Nursing Sepsis Screen: No Definite Risk Source of Information: Patient Exam Limitations: No Limitations History of Present Illness Date Seen by Provider: Jan 31, 2018 Time Seen by Provider: 14:18 Initial Comments Patient is a 57-year-old female who was brought back from the emergency room waiting with reports of shortness of breath and vomiting. She reports that her and her friend were shopping when she smelt a hand lotion and became instantly sick and started hyperventilating. She reports that she has a history of anxiety and is very anxious on arrival to the emergency room. She also has had pneumonia and has been sick for the past 2 months but recently finished her antibiotics and has been having a lot of phlegm that she has been coughing up from her lungs. She had a brief moment where she was hyperventilating falling she is going to pass out and could not catch her breath. She also reports that she thinks she needs her thyroid checked. She sees [facility] for primary care. No acute distress on arrival to the emergency room. Timing/Duration: 1 Hour Associated Systoms: Nausea/Vomiting, Shortness of Air Allergies and Home Medications Allergies Coded Allergies: No Known Drug Allergies (Unverified , 01/31/18) Patient Home Medication List Home Medication List Reviewed: Yes Past Ywoqpcd-Wsnana-Sseqbn Hx Patient Social History Alcohol Use: Regular Use Alcohol Beverage of Choice: Riley Recreational Drug Use: No Smoking Status: Never a Smoker Recent Foreign Travel: No Contact w/Someone Who Travel: No Recent Infectious Disease Expo: No Physical Exam Vital Signs Vital Signs - First Documented 01/31/18 14:10 Temp 98.0 Pulse 82 Resp 18 B/P (MAP) 125/86 (99) Pulse Ox 100 Capillary Refill : Less Than 3 Seconds Height, Weight, BMI Height: 5'9.00" Weight: 186lbs. oz. 84.759953wn; BMI Method:Stated Progress/Results/Core Measures Suspected Sepsis Recent Fever Within 48 Hours: No Infection Criteria Present: None New/Unexplained Altered Menta: No Sepsis Screen: No Definite Risk SIRS Temperature:98.0 Pulse: 82 Respiratory Rate: 18 Laboratory Tests 01/31/18 14:24: White Blood Count 11.3H Blood Pressure 125 /86 Mean: 99 Laboratory Tests 01/31/18 14:24: Creatinine 1.06, Platelet Count 335, Total Bilirubin 0.8 Results/Orders Lab Results Laboratory Tests Test 01/31/18 14:24 Range/Units White Blood Count 11.3 H 4.3-11.0 10^3/uL Red Blood Count 4.54 4.35-5.85 10^6/uL Hemoglobin 14.8 11.5-16.0 G/DL Hematocrit 42 35-52 % Mean Corpuscular Volume 93 80-99 FL Mean Corpuscular Hemoglobin 33 25-34 PG Mean Corpuscular Hemoglobin Concent 35 32-36 G/DL Red Cell Distribution Width 14.6 H 10.0-14.5 % Platelet Count 335 130-400 10^3/uL Mean Platelet Volume 8.8 7.4-10.4 FL Neutrophils (%) (Auto) 72 42-75 % Lymphocytes (%) (Auto) 16 12-44 % Monocytes (%) (Auto) 12 0-12 % Eosinophils (%) (Auto) 0 0-10 % Basophils (%) (Auto) 0 0-10 % Neutrophils # (Auto) 8.1 H 1.8-7.8 X 10^3 Lymphocytes # (Auto) 1.8 1.0-4.0 X 10^3 Monocytes # (Auto) 1.4 H 0.0-1.0 X 10^3 Eosinophils # (Auto) 0.0 0.0-0.3 10^3/uL Basophils # (Auto) 0.0 0.0-0.1 10^3/uL D-Dimer 0.33 0.00-0.49 UG/ML Sodium Level 142 135-145 MMOL/L Potassium Level 3.7 3.6-5.0 MMOL/L Chloride Level 106 98-107 MMOL/L Carbon Dioxide Level 20 L 21-32 MMOL/L Anion Gap 16 H 5-14 MMOL/L Blood Urea Nitrogen 19 H 7-18 MG/DL Creatinine 1.06 0.60-1.30 MG/DL Estimat Glomerular Filtration Rate 53 BUN/Creatinine Ratio 18 Glucose Level 92 70-105 MG/DL Calcium Level 9.4 8.5-10.1 MG/DL Corrected Calcium 9.1 8.5-10.1 MG/DL Total Bilirubin 0.8 0.1-1.0 MG/DL Aspartate Amino Transf (AST/SGOT) 49 H 5-34 U/L Alanine Aminotransferase (ALT/SGPT) 55 0-55 U/L Alkaline Phosphatase 49 40-136 U/L Total Protein 7.2 6.4-8.2 GM/DL Albumin 4.4 3.2-4.5 GM/DL TSH Lynn Testing 0.54 0.35-4.94 UIU/ML Serum Alcohol < 10 <10 MG/DL My Orders Orders - PRETTY ABURTO Cbc With Automated Diff (01/31/18 14:17) Comprehensive Metabolic Panel (01/31/18 14:17) Fibrin Degradation Products (01/31/18 14:17) Chest Pa/Lat (2 View) (01/31/18 14:17) Saline Lock/Iv-Start (01/31/18 14:17) Alcohol (01/31/18 14:55) Thyroid Analyzer (01/31/18 15:16) Ns Iv 1000 Ml (Sodium Chloride 0.9%) (01/31/18 15:30) Ondansetron Injection (Zofran Injectio (01/31/18 15:30) Medications Given in ED Current Medications Medications Dose Ordered Sig/Sharon Route Start Time Stop Time Status Last Admin Dose Admin Ondansetron HCl 4 mg ONCE ONCE IVP 01/31/18 15:30 01/31/18 15:31 DC 01/31/18 15:25 4 MG Vital Signs/I&O 01/31/18 14:10 Temp 98.0 Pulse 82 Resp 18 B/P (MAP) 125/86 (99) Pulse Ox 100 Capillary Refill : Less Than 3 Seconds Blood Pressure Mean: 99 Departure Impression Primary Impression: Anxiety Additional Impression: Nausea & vomiting Disposition: 01 HOME, SELF-CARE Condition: Stable/Unchanged Departure-Patient Inst. Decision time for Depature: 16:15 Referrals: [facility] (PCP) Primary Care Physician JALIL TINEO (Family) Primary Care Physician Patient Instructions: Anxiety, Adult (DC), Nausea and Vomiting, Adult Add. Discharge Instructions: Resume your home medications as previously prescribed. Use the Zofran that you have at home for any nausea and vomiting. Take your anxiety medication as prescribed. Return back to the emergency room for any worsening symptoms or concerns as needed. Follow-up with [facility] within 1 week for recheck. All discharge instructions reviewed with patient and/or family. Voiced understanding. PRETTY ABURTO Jan 31, 2018 16:15
[2018-01-31 16:21] VITALS: BP 121/63
== END 2018-01-31 16:21 | disposition home or self-care (01) ==
LOC: EDUNIT# 14:10 → ER 14:12
DX: F41.9 Anxiety disorder, unspecified (principal); R11.2 Nausea with vomiting, unspecified; Z87.01 Personal history of pneumonia (recurrent)
CPT/HCPCS: 36415; 71046; 80053; 80320; 84443; 85025; 85379; 96361; 96374

== ENCOUNTER 2022-10-12 10:53 | Emergency (ER) | payer SELFPAY ==
[~2022-10-12] VITALS: Ht 175 cm; Wt 72.0 kg
[2022-10-12] MEDS ORDERED: ADENOSINE INJECTION 6 MG/2 ML VIAL IV ONE ×3 (10:57→11:15)
[2022-10-12] MEDS ORDERED: NS IV 1000 ML 1,000 ML ONE (11:04)
[2022-10-12] MEDS ORDERED: NS IV 1000 ML 1,000 ML IV STA ×2 (11:07→11:45)
[2022-10-12 11:13] LABS: BASOPHILS # (AUTO) 0.1 10^3/uL (0.0-0.1); BASOPHILS % (AUTO) 1 % (0-10); EOSINOPHILS # (AUTO) 0.1 10^3/uL (0.0-0.3); EOSINOPHILS % (AUTO) 1 % (0-10); HEMATOCRIT 48 % (35-52); LYMPHOCYTES # (AUTO) 3.5 10^3/uL (1.0-4.0); LYMPHOCYTES % (AUTO) 32 % (12-44); MEAN CORPUSCULAR HEMOGLOBIN 32 pg (25-34); MEAN CORPUSCULAR HGB CONC 33 g/dL (32-36); MEAN CORPUSCULAR VOLUME 97 fL (80-99); MEAN PLATELET VOLUME 9.8 fL (9.0-12.2); MONOCYTES # (AUTO) 0.9 10^3/uL (0.0-1.0); MONOCYTES % (AUTO) 8 % (0-12); NEUTROPHILS # (AUTO) 6.4 10^3/uL (1.8-7.8); NEUTROPHILS % (AUTO) 58 % (42-75); PLATELET COUNT 287 10^3/uL (130-400)
[2022-10-12 11:17] LABS: PROTHROMBIN TIME PATIENT 13.1 SEC (12.2-14.7)
[2022-10-12 11:23] LABS: ALANINE AMINOTRANSFERASE 41 U/L (0-55); ALBUMIN 4.4 GM/DL (3.2-4.5); ALKALINE PHOSPHATASE 69 U/L (40-136); BILIRUBIN,TOTAL 0.8 MG/DL (0.1-1.0); BUN/CREATININE RATIO 10; CALCIUM 9.4 MG/DL (8.5-10.1); CARBON DIOXIDE 15 MMOL/L (21-32); CHLORIDE 109 MMOL/L (98-107); CREATININE SERUM 1.22 MG/DL (0.60-1.30); GFR ESTIMATED 50; GLUCOSE 139 MG/DL (70-105); POTASSIUM 5.1 MMOL/L (3.6-5.0); SODIUM 139 MMOL/L (135-145); TOTAL PROTEIN 8.3 GM/DL (6.4-8.2)
--- NOTE | 2022-10-12 11:23 | Diagnostic Imaging Report ---
EXAMINATION: Chest 1 view HISTORY: Chest pain. Anxiety. COMPARISON: 01/31/2018. FINDINGS: The lung volumes are normal. No focal consolidation is seen. No large pleural effusion or pneumothorax is seen. The cardiomediastinal silhouette is normal in size and contour. No acute osseous abnormality is seen. IMPRESSION: 1. No acute pleuroparenchymal process. Dictated by: Dictated on workstation # [id number]
--- NOTE | 2022-10-12 12:21 | ED Cardiac General ---
History of Present Illness General Chief Complaint: Cardiac/General Problems Stated Complaint: CARDIAC Nursing Triage Note: PT TO 3 BY [facility] WITH CC OF DIZZY, ANXIETY, AND HR OF 203. DR. CARTER TO AT TRIAGE Source: patient Exam Limitations: no limitations History of Present Illness Date Seen by Provider: Oct 12, 2022 Time Seen by Provider: 10:54 Initial Comments Patient is a 62yo female who presents to the ER with a complaints of rapid heartbeat, feeling dizzy and anxious. She was at her dentists office. She states this has happened to her twice before, although she has never sought treatment, it has resolved on its' own. She has no known PMH, takes no daily medications. States she only has problems with anxiety, She is a smoker. Denies chest pain., IS not nauseated. No recent illnesses. No excessive caffeine use, no cold medications or other stimulants. 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 ASA po MACHINE LONG GOODS HELPER: No Associated Systoms: Denies Symptoms Allergies and Home Medications Allergies Coded Allergies: No Known Drug Allergies (Unverified , 01/31/18) Patient Home Medication List Home Medication List Reviewed: Yes Review of Systems Review of Systems Constitutional: see HPI EENTM: No Symptoms Reported Respiratory: No Symptoms Reported Cardiovascular: Palpitations Gastrointestinal: No Symptoms Reported Genitourinary: No Symptoms Reported Musculoskeletal: no symptoms reported Skin: no symptoms reported Psychiatric/Neurological: Anxiety Endocrine: No Symptoms Reported Past Rbfzkgg-Xtfdvx-Hmtonl Hx Patient Social History Tobacco Use?: No Substance use?: Yes Substance type: Marijuana Alcohol Use?: Yes Alcohol Frequency: Couple times a week Immunizations Up To Date Second COVID19 Vaccination Harrison: YES Past Medical History Surgery/Hospitalization HX: SVT, HTN Physical Exam Vital Signs Vital Signs - First Documented 10/12/22 10:54 Temp 36.5 Pulse 203 Resp 20 B/P (MAP) 130/96 (107) Pulse Ox 97 O2 Delivery Room Air Capillary Refill : Less Than 3 Seconds Height, Weight, BMI Height: 5'9.00" Weight: 186lbs. oz. 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 as Tested Skin: Normal Color, Warm/Dry Progress/Results/Core Measures Results/Orders Lab Results Laboratory Tests Test 10/12/22 10:50 Range/Units White Blood Count 11.0 4.3-11.0 10^3/uL Red Blood Count 5.01 3.80-5.11 10^6/uL Hemoglobin 16.0 11.5-16.0 g/dL Hematocrit 48 35-52 % Mean Corpuscular Volume 97 80-99 fL Mean Corpuscular Hemoglobin 32 25-34 pg Mean Corpuscular Hemoglobin Concent 33 32-36 g/dL Red Cell Distribution Width 12.4 10.0-14.5 % Platelet Count 287 130-400 10^3/uL Mean Platelet Volume 9.8 9.0-12.2 fL Immature Granulocyte % (Auto) 0 % Neutrophils (%) (Auto) 58 42-75 % Lymphocytes (%) (Auto) 32 12-44 % Monocytes (%) (Auto) 8 0-12 % Eosinophils (%) (Auto) 1 0-10 % Basophils (%) (Auto) 1 0-10 % Neutrophils # (Auto) 6.4 1.8-7.8 10^3/uL Lymphocytes # (Auto) 3.5 1.0-4.0 10^3/uL Monocytes # (Auto) 0.9 0.0-1.0 10^3/uL Eosinophils # (Auto) 0.1 0.0-0.3 10^3/uL Basophils # (Auto) 0.1 0.0-0.1 10^3/uL Immature Granulocyte # (Auto) 0.0 0.0-0.1 10^3/uL Prothrombin Time 13.1 12.2-14.7 SEC INR Comment 1.0 0.8-1.4 Activated Partial Thromboplast Time 29 24-35 SEC Sodium Level 139 135-145 MMOL/L Potassium Level 5.1 H 3.6-5.0 MMOL/L Chloride Level 109 H 98-107 MMOL/L Carbon Dioxide Level 15 L 21-32 MMOL/L Anion Gap 15 H 5-14 MMOL/L Blood Urea Nitrogen 12 7-18 MG/DL Creatinine 1.22 0.60-1.30 MG/DL Estimat Glomerular Filtration Rate 50 BUN/Creatinine Ratio 10 Glucose Level 139 H 70-105 MG/DL Calcium Level 9.4 8.5-10.1 MG/DL Corrected Calcium 9.1 8.5-10.1 MG/DL Magnesium Level 2.0 1.6-2.4 MG/DL Total Bilirubin 0.8 0.1-1.0 MG/DL Aspartate Amino Transf (AST/SGOT) 48 H 5-34 U/L Alanine Aminotransferase (ALT/SGPT) 41 0-55 U/L Alkaline Phosphatase 69 40-136 U/L Troponin I < 0.028 <0.028 NG/ML Total Protein 8.3 H 6.4-8.2 GM/DL Albumin 4.4 3.2-4.5 GM/DL My Orders Orders - ERICKSON CARTER MD Ekg Tracing (10/12/22 10:58) Adenosine Injection (Adenosine Injection (10/12/22 10:57) Ns Iv 1000 Ml (Ns Iv 1000 Ml) (10/12/22 11:04) Cbc With Automated Diff (10/12/22 11:06) Magnesium (10/12/22 11:06) Chest 1 View, Ap/Pa Only (10/12/22 11:06) Ekg Tracing (10/12/22 11:06) Comprehensive Metabolic Panel (10/12/22 11:06) Protime With Inr (10/12/22 11:06) Partial Thromboplastin Time (10/12/22 11:06) O2 (10/12/22 11:06) Monitor-Rhythm Ecg Trace Only (10/12/22 11:06) Ed Iv/Invasive Line Start (10/12/22 11:06) Troponin I [place] (10/12/22 11:06) Ns Iv 1000 Ml (Ns Iv 1000 Ml) (10/12/22 11:07) Adenosine Injection (Adenosine Injection (10/12/22 11:15) Adenosine Injection (Adenosine Injection (10/12/22 11:15) Ekg Tracing (10/12/22 11:07) Ns Iv 1000 Ml (Ns Iv 1000 Ml) (10/12/22 11:45) Medications Given in ED Vital Signs/I&O 10/12/22 10/12/22 10:54 12:34 Temp 36.5 36.5 Pulse 203 92 Resp 20 18 B/P (MAP) 130/96 (107) 138/97 Pulse Ox 97 97 O2 Delivery Room Air Room Air Blood Pressure Mean: 107 Progress Progress Note : Time: 12:20 Progress Note Patient seen and evaluated by me. Eval today includes physical exam and "chest pain protocol". Pertinent physical exam findings include WDWN in mild distress Initial ECG Impression Date: Oct 12, 2022 Initial ECG Impression Time: 10:53 Initial ECG Rate: 202 Initial ECG Rhythm: SVT EKG #1: EKG Time: 11:02 Rate: 136 Rhythm: S.Tach Intervals [place] 143 QRS 82 QTc 499 ECG Comparisson: Changed ECG Impression: Nonspecific Changes Comment significant ectopy with frequent PVC; no ST elevation or depressions EKG #2: EKG Time: 11:06 Rate: 111 Rhythm: S.Tach Intervals: Normal ECG Comparisson: Changed ECG Impression: Nonspecific Changes Comment Q waves in leads III and aVF; occ PVC Diagnostic Imaging Diagonstic Imaging: Xray Plain Films/CT/US/NM/MRI: chest Comments [facility] [place] NAME: STEPHANIE GONZALEZ [facility] REC#: [id number] PT STATUS: REG ER : 1960 PHYSICIAN: ERICKSON CARTER MD ADMIT DATE: 10/12/22/ER Signed Date of Exam:10/12/22 CHEST 1 VIEW, AP/PA ONLY EXAMINATION: Chest 1 view HISTORY: Chest pain. Anxiety. COMPARISON: 01/31/2018. FINDINGS: The lung volumes are normal. No focal consolidation is seen. No large pleural effusion or pneumothorax is seen. The cardiomediastinal silhouette is normal in size and contour. No acute osseous abnormality is seen. IMPRESSION: 1. No acute pleuroparenchymal process. Dictated by: Dictated on workstation # [id number] Dict: 10/12/22 1121 Trans: 10/12/22 1124 [id number] Interpreted by: KENNETH GOTTI DO Electronically signed by: KENNETH GOTTI DO 10/12/22 1124 Departure Impression Primary Impression: Supraventricular tachycardia Disposition: 01 HOME, SELF-CARE Condition: Improved Departure-Patient Inst. Decision time for Depature: 12:20 Referrals: [facility] (PCP) Primary Care Physician JALIL TINEO (Family) Primary Care Physician [facility] LONNIE LUJAN MD Patient Instructions: Paroxysmal Supraventricular Tachycardia (DC) Add. Discharge Instructions: Be sure and drink plenty of fluids to stay well-hydrated. Your BuSpar/anxiety medication as directed. Try and quit smoking. Avoid excess caffeine. If you do have a return of symptoms, palpitations, shortness of breath, chest pain please return to the emergency room for reevaluation. I have provided you [facility], Dr. Lujan and Dr. Saeed.. You can call either clinic to schedule a follow-up appointment. Work/School Note: Work Release Form Date Seen in the Emergency Department: Oct 12, 2022 Return to Work: Oct 13, 2022 Copy Copies To 1: MARK HILL KATHRYN M MD Oct 12, 2022 12:21
[2022-10-12 12:34] VITALS: BP 138/97
== END 2022-10-12 12:33 | disposition home or self-care (01) ==
LOC: EDUNIT# 10:53 → ER 10:54
DX: I47.1 Supraventricular tachycardia (principal)
CPT/HCPCS: 36415; 71045; 80053; 83735; 84484; 85025; 85610; 85730; 93005; 93041